=== PATIENT | female | born 1970 | race Caucasian/White ===

== ENCOUNTER 2021-03-18 17:28 | Observation (INO) | payer OTHER ==
[~2021-03-18] VITALS: Ht 154.9 cm; Wt 63.5 kg
--- NOTE | ~2021-03-18 | O ---
[facility] [place] [address] OPERATIVE REPORT Name: TANVIR MARIA Room #: 441-P [facility] Kristina Andino#: [id number] Admission: 03/18/21 Attend Phys: Nemesio Young MD Discharge: 03/19/21 Date of : 68 Report #: [id number] THIS REPORT FOR: cc: NO FAMILY PHYSICIAN or PCP NO FAMILY PHYSICIAN or PCP ~ DATE OF SERVICE: 03/19/2021 PREPROCEDURE DIAGNOSIS: Biliary colic. POSTPROCEDURE DIAGNOSIS: Biliary colic. SURGEON: Nemesio Young MD DISASTER RECOVERY ANALYST: None. OPERATION PERFORMED: Laparoscopic cholecystectomy. ANESTHESIA TYPE: General endotracheal anesthesia. ESTIMATED BLOOD LOSS IN MILLILITERS: 5 mL. SPECIMEN REMOVED: Gallbladder. COMPLICATIONS: None apparent. FINDINGS: Consistent with diagnosis. Aydee-en-Y gastric bypass limbs and gastric pouch evaluated and were unremarkable. INDICATIONS: The patient is a 50-year-old female with a past medical history significant for Aydee-en-Y gastric bypass who presented to the Emergency Department with complaints of epigastric and right upper quadrant abdominal pain. She reports she was diagnosed with gallstones earlier this week at an outside hospital and was discharged home with p.o. morphine. She was scheduled to see a general surgeon who scheduled an outpatient cholecystectomy, but was not able to get an appointment until 03/27 and reports that she cannot wait that long. The patient reports that she has had pain for 5 days which has progressively worsened and is now constant. She denies any nausea or vomiting. She endorses poor appetite and food aversion for several days because after eating foods, she has worsening of her right upper quadrant and epigastric abdominal pain The risks, benefits and alternatives were discussed with the patient and she agreed to proceed with operative management at this time. PROCEDURE IN DETAIL: After informed consent was obtained, the patient was taken back to the operating room and placed in the supine position on the operating table. General endotracheal anesthesia was induced per the Anesthesia team and [address] [address] OPERATIVE REPORT Name: TANVIR MARIA Room #: 441-P [facility]#: [id number] Admission: 03/18/21 Attend Phys: Nemesio Young MD Discharge: 03/19/21 Date of : 68 Report #: [id number] this was done without complication. The abdomen was prepped and draped in usual sterile fashion. A surgical timeout was preformed with everyone in agreement. Preoperative antibiotics were administered. SCDs were in place and functioning. Local anesthetic was injected into tissue surrounding the umbilicus. A sharp 11 blade scalpel was used to make a 7-mm skin incision. The anterior abdominal fascia was grasped with an Allis clamp and elevated. The Veress needle was then placed into the abdomen and insufflated. A 5-mm trocar was then placed and a 5-mm 30-degree laparoscope was then carefully placed and used to explore the abdomen. There was no intra-abdominal abnormalities noted. There was no evidence of ____ port placement. Local anesthetic was used to infiltrate the subxiphoid region and a 12-mm skin incision was made. A 10-mm trocar was then placed under direct visualization. The right upper quadrant regions were infiltrated with local anesthetic and two 7-mm skin incisions were made. Two 5-mm trocars were then placed under direct visualization. The gallbladder was retracted cephalad and the neck of the gallbladder was carefully dissected out. Critical view of safety was obtained. The cystic duct was clipped once proximally and 3 times distally and divided with laparoscopic scissors. The cystic artery was clipped once proximally and 3 times distally and divided with laparoscopic scissors as well. Gallbladder was taken off of the liver bed with electrocautery. Once the liver, gallbladder fossa and right gutter were investigated and there was no evidence of bile spillage and excellent hemostasis was noted, the gallbladder was placed in an EndoCatch bag and removed from the abdomen. The Aydee-en-Y gastric bypass was interrogated and was unremarkable. The gastric pouch was without inflammation or signs of perforation. I did run the Aydee limb down to the jejunojejunostomy which was unremarkable. There was no evidence of internal hernias or mesenteric defects noted. Fascial closure device was used to close the subxiphoid port with an 0 Vicryl stitch under direct visualization. All ports were removed under direct vision and the abdomen was deflated. The skin of all incisions were closed with 4-0 Monocryl in an interrupted subcuticular fashion. The wounds were then dressed with Dermabond as a final dressing. The patient tolerated the procedure well, remained in stable condition, was sent to recovery in stable condition. By: 0935 1150 /nt
[2021-03-18 17:34] VITALS: BP 105/66
[2021-03-18 18:09] LABS: URINE BILIRUBIN NEGATIVE (Negative); URINE BLOOD TRACE (Negative); URINE CLARITY SL CLOUDY; URINE COLOR YELLOW; URINE GLUCOSE-RANDOM* NEGATIVE (Negative); URINE KETONES NEGATIVE (Negative); URINE NITRITE-REFLEX NEGATIVE (Negative); URINE PROTEIN (DIPSTICK) NEGATIVE (Negative); URINE SPECIFIC GRAVITY >= 1.030 (1.005-1.035); URINE UROBILINOGEN 0.2 E.U./dl (0.2-1.0)
[2021-03-18 18:11] LABS: URINE LEUKOCYTES-REFLEX 2+ (Negative)
[2021-03-18 18:20] LABS: CASTS None Seen /LPF (None Seen); SQUAMOUS 4-10 Moderate /LPF (0-3)
[2021-03-18 18:21] LABS: BACTERIA-REFLEX 1-9 Few /HPF (None Seen); URINE RBC 1-2 Rare /HPF (NONE SEEN); URINE WBC-REFLEX 6-15 Few /HPF (0-5)
[2021-03-18 18:25] LABS: CRYSTALS None Seen /LPF (None Seen)
[2021-03-18 19:23] LABS: ABSOLUTE NEUTROPHILS 4.1 thou/uL (1.4-8.2); BASOPHILS 0.8 % (0.0-2.0); EOSINOPHILS 1.5 % (0.0-3.0); HEMATOCRIT 32.3 % (37.0-47.0); HEMOGLOBIN 10.1 gm/dL (12.0-15.0); LYMPHOCYTES 17.9 % (24.0-44.0); MCH 22.3 pg (26.0-34.0); MCHC 31.2 g/dL (28.0-37.0); MCV 71.4 fL (80.0-100.0); MONOCYTES 6.9 % (1.0-8.0); PLATELET COUNT 273 thou/uL (150-400); POLYS 72.9 % (36.0-66.0); RBC 4.52 mil/uL (4.20-5.00); RDW 17.4 % (10.5-14.5); WBC 5.6 thou/uL (4.0-11.0)
[2021-03-18 19:36] LABS: CALCIUM 8.9 mg/dL (8.5-10.1); CREATININE 0.8 mg/dL (0.6-1.0); POTASSIUM 4.1 mmol/L (3.5-5.1)
[2021-03-18 19:41] LABS: ALBUMIN 3.7 g/dL (3.4-5.0); TOTAL BILIRUBIN 0.3 mg/dL (0.2-1.0); TOTAL PROTEIN 7.8 g/dL (6.4-8.2)
[2021-03-18 21:08] LABS: ANISOCYTOSIS 2+; HYPOCHROMASIA 2+; MICROCYTES 1+; POIKILOCYTOSIS 1+
[2021-03-19 02:31] VITALS: BP 132/66
[2021-03-19 04:39] VITALS: BP 122/69
--- NOTE | 2021-03-19 06:26 | NUR ---
PT ARRIVED FROM ED ACCOMPANIED BY STAFF. ALERT AND ORIENT TIMES FOUR. REQUEST TO GET SOME REST, STATE THAT SHE IS EXHAUSTED. VSS, AFEBRILE. NI PAIN IN ABD. PLEASANT AND CALM, COOPERATIVE. REMAINS NPO DURING THE NIGHT. POSSIBLE SURGERY TODAY WITH DR. RIVAS. WILL CONTINUE TO MONITOR
--- NOTE | 2021-03-19 07:14 | EKG ---
[address] [place] [address] ELECTROCARDIOGRAM REPORT Name: TANVIR MARIA Room #: 441-P [facility] M..#: [id number] Admission: 03/18/21 Attend Phys: Nemesio Young MD Discharge: Date of : 68 Report #: [id number] [facility] ED Test Date: 2021-03-18 Test Time: 19:25:01 Pat Name: TANVIR MARIA Department: Room: 441 Gender: F Medical Records Tech: FELICITA : 1970 Requested By: Muna Barrera Order Number: [id number] MD: Luther Ramsay Measurements Intervals [place] Rate: 62 P: 10 MS: 158 QRS: 35 QRSD: 108 T: 33 QT: 433 QTc: 440 Interpretive Statements Sinus rhythm Nonspecific T abnormalities, anterior leads No previous ECG available for comparison Electronically Signed On 03-19-2021 7:14:20 PROPERTY APPRAISER by Luther Ramsay [email or web address] <ELECTRONICALLY SIGNED> By: Luther Ramsay MD, [facility] 03/19/21 0714 1925 1925 Luther Ramsay MD, FACC /EPI
[2021-03-19 08:34] VITALS: BP 106/60
[2021-03-19 11:49] VITALS: BP 129/71
[2021-03-19 15:34] VITALS: BP 126/65
[2021-03-19] MEDS ORDERED: HYDROCODON-ACE1 EAC7 PO ×2 (15:50→16:25)
[2021-03-19 16:49] VITALS: BP 106/60
--- NOTE | 2021-03-19 16:55 | NUR ---
PT ASSESSED AT START OF SHIFT. NO C/O PAIN THIS AM. NPO FOR LAP CHOLEY. PT WENT FOR OR THIS AM AND RETURNED THIS AFTERNOON ALERT AND IN NO ACUTE DISTRESS. DENIED PAIN. VOIDED IN REC RM AND ON UNIT. AMBULATED AROUND THE UNIT W/ STEADY GAIT. SLEPT SOME THIS AFTERNOON. DISCHARGING AT THIS TIME W/ ALL BELNOGINGS. LAP SITES WELL APPROXIMATED. ONE PAIN MED GIVEN.
--- NOTE | 2021-03-23 18:06 | PATH ---
[facility] [address] [place] [address] PATHOLOGY RPT PROCEDURE Name: TANVIR MARIA Room #: 441-P LEXII YenRPamela#: [id number] Admission: 03/18/21 Date of : 68 Discharge: 03/19/21 Report #: [id number] Path Case #: [id number] [facility] Accession Number: [id number] . 01 Material submitted: . gallbladder - GALLBLADDER . 01 Clinical history: . LAPAROSCOPIC CHOLECYSTECTOMY- SJ CHOLELITHIASIS . 01 Diagnosis: Gallbladder, "gallbladder, cholecystectomy": - Moderate chronic cholecystitis with cholelithiasis. - The attached lymphnode reveals reactive changes (SHA:mike; 03/23/2021) MBR 03/23/2021 1657 Local . 01 Electronically signed: . Pasquale Drake MD, Pathologist NPI- [id number] . 01 Gross description: . Fixative: Formalin Labeled: Gallbladder Specimen received: Previously disrupted gallbladder Dimensions: 10.5 x 4.2 x 0.5 cm Serosa: Light boothe-yellow and adipose covered Lymph node: Possible lymph node found near cystic duct measuring 1.1 x 0.5 x 0.4 cm Mucosa: Velvety and light boothe to bile-stained Average wall thickness: 0.2 cm Calculi: Present, black and friable Abnormalities: Possible lymph node . A1- Die Sizer body, fundus, and the cystic duct margin. A2-possible lymph node, bisected ([facility]; 03/20/2021) [facility] 03/20/2021 1206 Local . 01 Pathologist provided ICD-10: K80.10 . 01 CPT . 580709 Specimen Comment: A courtesy copy of this report has been sent to [phone] Specimen Comment: [place] [address] PATHOLOGY RPT PROCEDURE Name: TANVIR MARIA Room #: 441-P LEXII Andino#: [id number] Admission: 03/18/21 Date of : 68 Discharge: 03/19/21 Report #: [id number] Path Case #: [id number] Performed at: 01 [facility] [place] [address], [place], [place] [id number] MD Pasquale Drake MD Phone: [phone]
== END 2021-03-19 16:55 | disposition home or self-care (01) ==
LOC: ER 17:28 → EROBS 22:26 → 4W 22:26 → 4S 03-19 02:33 → 4W 03-19 02:35 → 4S 03-19 02:47
PROVIDERS: Physician Assistant; ADMIT Surgery; ATTEND Surgery
DX: K80.70 Calculus of gallbladder and bile duct without cholecystitis without obstruction (principal); Z79.899 Other long term (current) drug therapy; Z20.822 Contact with and (suspected) exposure to COVID-19; F32.9 Major depressive disorder, single episode, unspecified; G62.9 Polyneuropathy, unspecified; F17.200 Nicotine dependence, unspecified, uncomplicated
CPT/HCPCS: 50010; 50101; 50411; 50555; 51489; 52265; 52266; 53307; 53310; 53312; 54022; 54118; 55245; 56462; 56525; 56526; 58574; 58910; 62110; 62900; 70005

== ENCOUNTER 2021-04-02 13:30 | Emergency (ER) | payer OTHER ==
[~2021-04-02] VITALS: Ht 154.9 cm; Wt 63.5 kg
[~2021-04-02 13:30] MED LIST: HYDROCODON-ACE1 EAC7 PO
[2021-04-02 13:43] VITALS: BP 132/79
[2021-04-02] MEDS ORDERED: AUGMENTIN 875-1 EACH PO ×2 (14:26→14:34)
[2021-04-02] MEDS ORDERED: ONDANSETRON ODT4 MG PO (14:26)
[2021-04-02] MEDS ORDERED: ONDANSETRON HCL4 M2 PO (14:34)
[2021-04-02] MEDS ORDERED: NORCO5 PO (14:58)
--- NOTE | 2021-04-03 11:22 | EKG ---
[place] [address] [place] [address] ELECTROCARDIOGRAM REPORT Name: TANVIR MARIA [id number] Admission: 04/02/21 Attend Phys: Discharge: 04/02/21 Date of : 68 Report #: [id number] [facility] ED Test Date: 2021-04-02 Test Time: 13:56:59 Pat Name: TANVIR MARIA Department: Room: Gender: F Top Dyeing Machine Tender: BAKARI : 1970 Requested By: Fredy Rowe Order Number: [id number] MD: Sanya Mayo Measurements Intervals [place] Rate: 71 P: -10 MO: 133 QRS: 8 QRSD: 91 T: 31 QT: 424 QTc: 461 Interpretive Statements Sinus rhythm Nonspecific T abnormalities, anterior leads Compared to ECG 03/18/2021 19:25:01 No significant changes Electronically Signed On 04-03-2021 11:21:45 EXAMINATION SCORER by Sanya Mayo [email or web address] <ELECTRONICALLY SIGNED> By: Sanya Mayo MD, [facility] 04/03/21 1121 1356 1356 Sanya Mayo MD, FACC /EPI
== END 2021-04-02 15:09 | disposition home or self-care (01) ==
LOC: ER 13:30
DX: K04.7 Periapical abscess without sinus (principal); R11.2 Nausea with vomiting, unspecified; G62.9 Polyneuropathy, unspecified; F32.9 Major depressive disorder, single episode, unspecified

== ENCOUNTER 2021-04-11 15:23 | Emergency (ER) | payer OTHER ==
[~2021-04-11] VITALS: Ht 154.9 cm; Wt 63.5 kg
[~2021-04-11 15:23] MED LIST changes: +AUGMENTIN 875-1 EACH PO; +NORCO5 PO; +ONDANSETRON HCL4 M2 PO; +ONDANSETRON ODT4 MG PO
[2021-04-11 15:26] VITALS: BP 103/68
[2021-04-11] MEDS ORDERED: NEURONTIN 300M300 M2 PO (15:32)
== END 2021-04-11 16:58 | disposition home or self-care (01) ==
LOC: ER 15:23
DX: U07.1 COVID-19 (principal); J10.1 Influenza due to other identified influenza virus with other respiratory manifestations; G62.9 Polyneuropathy, unspecified; F32.9 Major depressive disorder, single episode, unspecified; F17.200 Nicotine dependence, unspecified, uncomplicated; Z79.899 Other long term (current) drug therapy